=== PATIENT | male | born 1965 | race Two or more races ===

== ENCOUNTER 2017-06-11 09:27 | Emergency (ER) | payer OTHER ==
[~2017-06-11] VITALS: Ht 162.6 cm; Wt 88.5 kg
[2017-06-11] MEDS ORDERED: Tetracaine 0.5% Opth 4ml Soln LEFT EYE ONE (10:00)
[2017-06-11] MEDS ORDERED: Fluorescein Strips LEFT EYE ONE (10:00)
[2017-06-11 10:26] VITALS: BP 158/87
[2017-06-11] MEDS ORDERED: OCUFLOX5 ML LEFT EYE (10:37)
[2017-06-11] MEDS ORDERED: NORCO 5-325 TA1 EACH ORAL (10:37)
[2017-06-11 10:38] VITALS: BP 158/87
--- NOTE | 2017-06-15 14:11 | Emergency Room Report ---
History of Present Illness General Chief Complaint: Eye Problems Source: Patient Present Illness HPI 51-year-old male presents to ED complaining of left eye pain. Patient states that at work today he feels that something may have gotten into his eye. Patient was not wearing safety goggles. patient notes throbbing pain, 3/10, nonradiating. Denies photophobia or blurry vision. Denies any other injuries. Tetanus is up-to-date. No other aggravating or relieving factors. Denies any other associated symptoms Allergies: Coded Allergies: SULFUR (Verified Allergy, Unknown, 06/11/17) Patient History Past Medical History: none Past Surgical History: none Pertinent Family History: none Social History: Denies: smoking, alcohol use, drug use Immunizations: UTD Reviewed Nursing Documentation: PMH: Agreed, PSxH: Agreed Nursing Documentation-PMH Past Medical History: No Stated History Review of Systems All Other Systems: negative except mentioned in HPI Physical Exam Vital Signs Date Time Temp Pulse Resp B/P (MAP) Pulse Ox O2 Delivery O2 Flow Rate FiO2 06/11/17 09:42 97.5 74 16 158/87 95 Room Air Sp02 EP Interpretation: reviewed, normal General Appearance: no apparent distress, alert, GCS 15, non-toxic Head: normocephalic Eyes: left eye PERRL, left eye fluoroscene uptake - rust spot on L sclera, left eye EOMI, left eye Scleral Injection, bilateral eye visual acuity ENT: normal ENT inspection, TMs + canals normal Neck: normal inspection Respiratory: normal inspection Cardiovascular #1: normal inspection Gastrointestinal: normal inspection Rectal: deferred Genitourinary: no CVA tenderness Musculoskeletal: normal inspection Neurologic: alert, oriented x3, responsive, motor strength/tone normal, sensory intact, speech normal Psychiatric: normal inspection Skin: normal inspection Lymphatic: normal inspection Medical Decision Making Diagnostic Impression: Primary Impression: Foreign body in eye Qualified Codes: T15.92XA - Foreign body on external eye, part unspecified, left eye, initial encounter ER Course Hospital Course 51-year-old male presents to ED with left eye pain, feel something in his eye Differential diagnoses include: conjunctivitis, traumatic iritis, foreign body, corneal abrasion Clinical course Patient placed on stretcher. After initial history, I applied tetracaine and Fluorescin to the affected eye. Using Wood's lamp I examined the eyes, I see a rust spot but no foreign body. I inverted eyelid and saw no evidence of foreign body. I provided copious eye irrigation using normal saline. Symptoms improved. Diagnosis - foreign body in eye Stable and discharged to home with prescription for Ocuflox and [place]. Followup with PMD/Optho. Return to ED if symptoms recur or worsen Last Vital Signs Date Time Temp Pulse Resp B/P (MAP) Pulse Ox O2 Delivery O2 Flow Rate FiO2 06/11/17 10:38 97.5 69 16 158/87 95 Room Air Status: improved Disposition: HOME, SELF-CARE Condition: Stable Scripts Ofloxacin (OCUFLOX) 5 Ml Drops 1 DROP LEFT EYE QID for 7 Days, ML Prov: FREDO COLIN M.D. 06/11/17 Hydrocodone Bit/Acetaminophen 5-325* (NORCO 5-325*) 1 Each Tablet 1 TAB ORAL Q6H Y for For Pain, #10 TAB 0 Refills Prov: FREDO COLIN M.D. 06/11/17 Referrals: NOT CHOSEN IPA/,REFERRING (PCP) Patient Instructions: Eye Foreign Body, [id number] FREDO COLIN M.D. Jun 15, 2017 14:10
== END 2017-06-11 10:45 | disposition home or self-care (01) ==
LOC: EMR 10:30
DX: T15.92XA Foreign body on external eye, part unspecified, left eye, initial encounter (principal); X58.XXXA Exposure to other specified factors, initial encounter; Y93.9 Activity, unspecified; Y99.0 Civilian activity done for income or pay
CPT/HCPCS: 99283